=== PATIENT | female | born 1960 | race Caucasian/White ===

== ENCOUNTER → 2016-11-16 | Outpatient (CLI) | payer OTHER ==
[~2016-11-16] MED LIST: CITA40TA4 PO; [UNRECOGNIZED DRUG - CODE] PO
[2016-11-16 17:19] LABS: ALT/SGPT 32 U/L (12-78); BLOOD UREA NITROGEN 16 mg/dl (7-18); BUN/CREATININE RATIO 21.8 (10-20); CALCIUM 9.8 mg/dl (8.5-10.1); CARBON DIOXIDE 31 mmol/L (21-32); CHLORIDE 99 mmol/L (98-107); CREATININE 0.71 mg/dl (0.60-1.20); GLUCOSE 102 mg/dl (70-99); POTASSIUM 3.7 mmol/L (3.5-5.1); SODIUM 138 mmol/L (136-145)
[2016-11-16 17:29] LABS: ALB/GLOB RATIO 1.3 (0.9-2); ALKALINE PHOSPHATASE 64 U/L (45-117); AST/SGOT 24 U/L (15-37)
== END | disposition home or self-care (01) ==
LOC: C.LABBC 14:16
PROVIDERS: ATTEND Internal Medicine
DX: K21.9 Gastro-esophageal reflux disease without esophagitis (principal); S82.892A Other fracture of left lower leg, initial encounter for closed fracture; X58.XXXA Exposure to other specified factors, initial encounter

== ENCOUNTER 2016-11-17 21:24 | Emergency (ER) | payer OTHER ==
[~2016-11-17] VITALS: Ht 162.6 cm; Wt 68.6 kg
[2016-11-17 21:33] VITALS: TEMP 36.7; Ht 162.6 cm; Wt 68.6 kg
[2016-11-17] MEDS ORDERED: LIDOCAINE/EPINEPHRINE 1% 20 ML VIAL ONE (21:40)
[2016-11-17] MEDS ORDERED: SODIUM CHLORIDE 0.9% 1000ML 1,000 ML IV STA (21:55)
[2016-11-17 22:22] LABS: BASO % 0.5 %; BASO ABS # 0.04 K/uL (0-0.2); COMPLETE YES; EOS % 0.8 %; IG% 0.1 %; LYMPH % 36.9 %; LYMPH ABS # 2.84 K/uL (1.2-3.4); MEAN CELL VOLUME 97.7 fL (80-100); MEAN CORPUSCULAR HEMOGLOBIN 32.3 pg (25-34); MEAN PLATELET VOLUME 9.3 fL (7.4-10.4); NEUT % 55.7 %; PLATELET COUNT 266 K/uL (130-400); WHITE BLOOD COUNT 7.69 K/uL (4.8-10.8)
--- NOTE | 2016-11-17 22:32 | DIAGNOSTIC IMAGING REPORT ---
HEAD CT NONCONTRAST CT DOSE: HISTORY: Trauma fall, ETOH, facial injury TECHNIQUE: Multiaxial CT images of the head were performed without the use of intravenous contrast. Comparison: None. Findings: The paranasal sinuses and mastoid air cells are clear. The calvarium and skull base are intact. The ventricles and sulci are within normal limits. There is no mass, hematoma, midline shift, or acute infarct. Impression: No acute intracranial abnormality. Electronically signed by: Bassam Whaley M.D. 11/17/2016 10:30 PM Dictated Date/Time: 11/17/2016 10:30 PM
--- NOTE | 2016-11-17 22:34 | DIAGNOSTIC IMAGING REPORT ---
CERVICAL SPINE CT CT DOSE: HISTORY: Trauma fall, ETOH, facial injury TECHNIQUE: Multiaxial CT images of the cervical spine were performed and reformatted in the sagittal and coronal plane without the use of contrast. COMPARISON: None. FINDINGS: No fractures. No subluxation. Prevertebral soft tissues and the C1-C2 interval are intact. No pneumothorax. Secondary ossification center superior aspect of the odontoid considered an anatomic variation. Moderate degenerative intervertebral this change. IMPRESSION: No acute process. Degenerative change. Electronically signed by: Bassam Whaley M.D. 11/17/2016 10:32 PM Dictated Date/Time: 11/17/2016 10:30 PM
--- NOTE | 2016-11-17 22:37 | DIAGNOSTIC IMAGING REPORT ---
MAXILLOFACIAL CT CT DOSE: 1171.35 mGy.cm HISTORY: Trauma fall, ETOH, facial injury TECHNIQUE: Multiaxial CT images of the maxillofacial region were performed and reformatted in the coronal plane without the use of contrast. COMPARISON: 10/31/2009 FINDINGS: The visualized cervical spine, skull base, pterygoid plates, nasal bones, lamina papyracea, orbital floors, mandible, and zygomatic arches are intact. No fractures. The orbits are unremarkable. Slight deformity of the nasal bones unchanged in the prior study. Slight cortical depression of the zygomatic arch bilaterally considered anatomic variation and also unchanged. Orbital margins are intact. Orbital floors are intact. Globes are symmetric. IMPRESSION: No acute bony abnormality. Several minor findings consistent with old posttraumatic change Electronically signed by: Bassam Whaley M.D. 11/17/2016 10:36 PM Dictated Date/Time: 11/17/2016 10:33 PM
[2016-11-17 22:42] LABS: BUN/CREATININE RATIO 14.3 (10-20); CALCIUM 9.4 mg/dl (8.5-10.1); CREATININE 0.79 mg/dl (0.60-1.20); POTASSIUM 3.5 mmol/L (3.5-5.1)
[2016-11-18 00:20] VITALS: BP 135/89; PULSE 81; O2SAT 98
--- NOTE | 2016-11-18 04:54 | EMERGENCY ROOM VISIT NOTE ---
History First contact with patient: 21:41 Chief Complaint: FALL Stated Complaint: FALL/ HEAD LAC History of Present Illness The patient is a 56 year old female who presents to the Emergency Room with complaints of fall who sustained a head injury he was intoxicated. Patient states she tripped and fell and hit her head in the kitchen. She had brief LOC. Patient's been drinking wine today. Patient has a laceration to her right temporal region. Tetanus is current. Patient denies neck pain, chest pain, dyspnea, back pain, numbness, tingling, dental pain, eye pain, lightheadedness or dizziness. No drug use. No other complains per patient. states he heard a thump and went to go check on his . He brought her in for further evaluation and treatment. Review of Systems See HPI for pertinent positives & negatives. A total of 10 systems reviewed and were otherwise negative. Past Medical/Surgical History Medical Problems: (1) Alcohol abuse (2) Depression (3) Feeling suicidal (4) Noncompliance with medication regimen Family History Patient reports no known family medical history. Social History Smoking Status: Never Smoker Alcohol Use: heavy Drug Use: none Marital Status: Housing Status: lives with family Occupation Status: employed Current/Historical Medications Scheduled Citalopram Hydrobromide (Citalopram Hydrobromide), 40 MG PO DAILY Trazodone Hcl (Trazodone), 150 MG PO HS Allergies Coded Allergies: No Known Allergies (Unverified , 10/31/09) Physical Exam Vital Signs Date Time Temp Pulse Resp B/P Pulse Ox O2 Delivery O2 Flow Rate FiO2 11/18/16 00:20 81 16 135/89 98 11/17/16 22:39 89 16 136/94 97 Room Air 11/17/16 21:33 36.7 80 18 184/105 96 Room Air 11/17/16 21:33 77 Pain Rating (0-10): 0 Physical Exam PHYSICAL EXAM: VITALS: Vitals are noted on the nurse's note and reviewed by myself. Vital signs hypertensive. GENERAL: Pleasant female with EtOH odor with arterial bleeding from the right temporal region that is profuse, nondiaphoretic, well-developed well- nourished. SKIN: 3 cm right forehead temporal region laceration with contusion that is profusely bleeding that is bright red in color concerning for arterial bleed The rest of the skin was without obvious lacerations or abrasions. Capillary reflex less than 2 seconds. HEAD: Normocephalic EARS: External auditory canals clear, tympanic membranes pearly jain without erythema or effusion bilaterally. No hemotympanums. No hardy sign. No mastoid tenderness. EYES: Pupils equal round and reactive to light and accommodation. Conjunctivae with injection, sclerae without icterus. Extraocular movements intact. NOSE: Patent, turbinates without inflammation or discharge. No sinus tenderness. No septal hematoma or bleeding. FACE: No facial bone tenderness. Full range of motion of the jaw without tenderness. MOUTH: Mucous membranes moist. Pharynx without erythema or exudate. Uvula midline. Airway patent. Tongue does not deviate. NECK: Supple without nuchal rigidity. Cervical spine is nontender. Full range of motion of the neck without tenderness. No JVD. HEART: Regular rate and rhythm without murmurs gallops or rubs. LUNGS: Clear to auscultation bilaterally without wheezes, rales or rhonchi. No dullness to percussion. No retractions or accessory muscle use. No chest wall tenderness. ABDOMEN: Positive bowel sounds x 4. Normal tympanic percussion. Soft, nontender, without masses or organomegaly. No guarding or rebound tenderness. MUSCULOSKELETAL: No tenderness of the thoracic or lumbar spine. No tenderness with pelvic rocking. Full range of motion without tenderness to palpation in all extremities. Normal gait. Strength 5/5 throughout. Peripheral pulses 2+. NEURO: Patient was alert and oriented to person place and time. Normal Mini- Mental status exam. Normal sensation to light and sharp touch. Negative Romberg and pronator drift. Cerebellar function intact. No focal neurological deficits. Medical Decision & Procedures Laboratory Results 11/17/16 21:59 Red Blood Count 4.40, Mean Corpuscular Volume 97.7, Mean Corpuscular Hemoglobin 32.3, Mean Corpuscular Hemoglobin Concent 33.0, Mean Platelet Volume 9.3, Neutrophils (%) (Auto) 55.7, Lymphocytes (%) (Auto) 36.9, Monocytes (%) (Auto) 6.0, Eosinophils (%) (Auto) 0.8, Basophils (%) (Auto) 0.5, Neutrophils # (Auto) 4.28, Lymphocytes # (Auto) 2.84, Monocytes # (Auto) 0.46, Eosinophils # (Auto) 0.06, Basophils # (Auto) 0.04 11/17/16 21:59 Test 11/17/16 21:59 White Blood Count 7.69 K/uL (4.8-10.8) Red Blood Count 4.40 M/uL (4.2-5.4) Hemoglobin 14.2 g/dL (12.0-16.0) Hematocrit 43.0 % (37-47) Mean Corpuscular Volume 97.7 fL (80-100) Mean Corpuscular Hemoglobin 32.3 pg (25-34) Mean Corpuscular Hemoglobin Concent 33.0 g/dl (32-36) Platelet Count 266 K/uL (130-400) Mean Platelet Volume 9.3 fL (7.4-10.4) Neutrophils (%) (Auto) 55.7 % Lymphocytes (%) (Auto) 36.9 % Monocytes (%) (Auto) 6.0 % Eosinophils (%) (Auto) 0.8 % Basophils (%) (Auto) 0.5 % Neutrophils # (Auto) 4.28 K/uL (1.4-6.5) Lymphocytes # (Auto) 2.84 K/uL (1.2-3.4) Monocytes # (Auto) 0.46 K/uL (0.11-0.59) Eosinophils # (Auto) 0.06 K/uL (0-0.5) Basophils # (Auto) 0.04 K/uL (0-0.2) RDW Standard Deviation 50.6 fL (36.4-46.3) RDW Coefficient of Variation 14.1 % (11.5-14.5) Immature Granulocyte % (Auto) 0.1 % Immature Granulocyte # (Auto) 0.01 K/uL (0.00-0.02) Anion Gap 7.0 mmol/L (3-11) Est Creatinine Clear Calc Drug Dose 77.5 ml/min Estimated GFR () 98.4 Estimated GFR (Non- 84.9 BUN/Creatinine Ratio 14.3 (10-20) Calcium Level 9.4 mg/dl (8.5-10.1) Ethyl Alcohol mg/dL 294.0 mg/dl (0-3) Medications Administered Medications (Trade) Dose Ordered Sig/Carlin Route Start Time Stop Time Status Last Admin Dose Admin Sodium Chloride (Nss 1000ml) 1,000 ml @ 999 mls/hr Q1H1M STAT IV 11/17/16 21:55 11/17/16 22:55 DC 11/17/16 21:55 999 MLS/HR Procedure Location: Right forehead temporal region Total length: 3 centimeters Complexity: Complex as patient had an arterial bleed Verbal consent was obtained after the risks and benefits were explained, including but not limited to bleeding, scarring, infection, pain, and bone/joint /nerve damage. At this time, the risks of the procedure are less than the risks of NOT performing the procedure. A time out was taken and the correct patient and site identified. The skin was prepped with betadine. The target area was anesthetized with 5 ml of 1% lidocaine with epinephrine and also to achieve hemostasis. Copious irrigation was performed using normal saline . The skin was re-prepped with betadine and a sterile field set. The wound was explored for foreign bodies and none found. Examination revealed no injury to deep structures such as tendons, bone, or significant blood vessels, but there was copious amount of bright red blood concerning for arterial bleed that was sutured down and hemostasis was achieved concerning for small tributary artery. Debridement was not performed. The wound edges were approximated using 6, 4-0 simple interrupted nylon sutures. Hemostasis and excellent approximation was achieved. Antibacterial ointment and a sterile dressing applied. Detailed wound care instructions and signs and symptoms of infection reviewed with the pt. No complications and the patient tolerated the procedure well. ED Course Prior records/ancillary studies reviewed. Triage Nursing notes reviewed. Additional history obtained from family. The patient's history was concerning for traumatic head injury who is intoxicated with a scalp laceration with arterial bleed Differential diagnosis: Etiologies such as concussion, contusion, fracture, subdural hematoma, epidural hematoma, intraparenchymal hemorrhage, as well as other traumatic pathologies were entertained. Physical examination findings: As above. ER treatment provided: Laceration repaired as above On reassessment the patient felt better. Diagnostics interpreted by me: The labs revealed limited alcohol. Stable H&H Imaging studies: CERVICAL SPINE CT CT DOSE: HISTORY: Trauma fall, ETOH, facial injury TECHNIQUE: Multiaxial CT images of the cervical spine were performed and reformatted in the sagittal and coronal plane without the use of contrast. COMPARISON: None. FINDINGS: No fractures. No subluxation. Prevertebral soft tissues and the C1-C2 interval are intact. No pneumothorax. Secondary ossification center superior aspect of the odontoid considered an anatomic variation. Moderate degenerative intervertebral this change. IMPRESSION: No acute process. Degenerative change. CT DOSE: HISTORY: Trauma fall, ETOH, facial injury TECHNIQUE: Multiaxial CT images of the head were performed without the use of intravenous contrast. Comparison: None. Findings: The paranasal sinuses and mastoid air cells are clear. The calvarium and skull base are intact. The ventricles and sulci are within normal limits. There is no mass, hematoma, midline shift, or acute infarct. Impression: No acute intracranial abnormality. CT DOSE: 1171.35 mGy.cm HISTORY: Trauma fall, ETOH, facial injury TECHNIQUE: Multiaxial CT images of the maxillofacial region were performed and reformatted in the coronal plane without the use of contrast. COMPARISON: 10/31/2009 FINDINGS: The visualized cervical spine, skull base, pterygoid plates, nasal bones, lamina papyracea, orbital floors, mandible, and zygomatic arches are intact. No fractures. The orbits are unremarkable. Slight deformity of the nasal bones unchanged in the prior study. Slight cortical depression of the zygomatic arch bilaterally considered anatomic variation and also unchanged. Orbital margins are intact. Orbital floors are intact. Globes are symmetric. IMPRESSION: No acute bony abnormality. Several minor findings consistent with old posttraumatic change Electronically signed by: Bassam Whaley M.D. It appears the patient has a concussion with scalp laceration and he was intoxicated. CT imaging was ordered and was unremarkable as above. Patient is intoxicated and her is willing to care for her. The arterial bleeder was ligated and sutured as above. Tetanus is current per patient. She is strongly encouraged avoid excessive alcohol intake in the future. She is Head Injury Signs and Symptoms and Laceration Care. She Is Advised Follow-Up Family Care in A Few Days or Here in the ER Sooner for Headache, Fevers, Confusion, Worsening Signs or Symptoms or As Needed. No Other Injuries Are Noted. Patient Is Well-Appearing. By the evaluation outlined above emergent etiologies such as fracture, subdural hematoma, epidural hematoma, intraparenchymal hemorrhage, as well as others were deemed relatively unlikely. The pt informed about the findings as listed above. All questions were answered and pleased with the treatment. Return instructions were outlined and the patient was discharged in stable condition. Case reviewed with my attending Referral: The patient was referred back to their primary care physician for follow-up in 2 to 3 days for a recheck of the current condition. Medical Decision As above Impression Primary Impression: Scalp laceration Additional Impressions: Alcohol intoxication Head injury Fall Departure Information Dispostion Home / Self-Care Condition GOOD Forms HOME CARE DOCUMENTATION FORM, IMPORTANT VISIT INFORMATION Patient Instructions My [facility], ED Head Injury Closed, ED Laceration All, ED Alcohol Abuse Additional Instructions Keep wound clean and dry. Do not allow any crusting or dried blood to accumulate on sutures. If this occurs, use a 1:1 solution of hydrogen peroxide/ water on a Q-tip to clean the wound. Use an antibiotic ointment for 3-4 days, then let wound dry. Suture removal in 5-7 days. Return sooner for any signs of infection (increasing redness, swelling, drainage). Ice and elevate for swelling and pain. Keep covered when in sun until sutures removed then SPF 50 or higher for one year. Vitamin E oil if desired two weeks after suture removal for reduction of scar Read head injury handout and return for any symptoms. Tylenol 1000 mg as needed for pain (Maximum 3000 mg Tylenol in 24 hr period). Avoid alcohol and contact sports/activities for one week and follow up with family doctor prior to returning to these activities if still symptomatic. Ice and elevate head. If your symptoms persist more than a week then follow up with the concussion clinic. Call [phone]. Recommend not to drink excessive amounts of alcohol. Return to ER sooner for headache, fevers, confusion, worsening signs or symptoms or as needed. Problem Qualifiers Primary Impression: Scalp laceration Encounter type: initial encounter Qualified Codes: S01.01XA - Laceration without foreign body of scalp, initial encounter Additional Impressions: Alcohol intoxication Complication of substance-induced condition: uncomplicated Qualified Codes: F10.120 - Alcohol abuse with intoxication, uncomplicated Head injury Encounter type: initial encounter Qualified Codes: S09.90XA - Unspecified injury of head, initial encounter
== END 2016-11-18 00:24 | disposition home or self-care (01) ==
LOC: EDBD 21:24 → C.EDC 21:26
DX: S01.01XA Laceration without foreign body of scalp, initial encounter (principal); F10.120 Alcohol abuse with intoxication, uncomplicated; F32.9 Major depressive disorder, single episode, unspecified; W18.09XA Striking against other object with subsequent fall, initial encounter

== ENCOUNTER → 2016-12-25 | Outpatient (CLI) | payer OTHER | END | disposition home or self-care (01) | LOC: C.MAMM 09:26 | PROVIDERS: ATTEND Internal Medicine | DX: S82.892A Other fracture of left lower leg, initial encounter for closed fracture (principal); X58.XXXA Exposure to other specified factors, initial encounter; M85.89 Other specified disorders of bone density and structure, multiple sites ==

== ENCOUNTER → 2016-12-25 | Outpatient (CLI) | payer OTHER ==
--- NOTE | 2016-12-26 14:34 | MAMMOGRAPHY REPORT ---
BILATERAL DIGITAL SCREENING MAMMOGRAM TOMOSYNTHESIS WITH CAD: 12/25/2016 CLINICAL HISTORY: Routine screening. Patient has no complaints. TECHNIQUE: Breast tomosynthesis in addition to standard 2D mammography was performed. Current study was also evaluated with a Computer Aided Detection (CAD) system. COMPARISON: Comparison is made to exams dated: 01/18/2014 mammogram, 01/22/2013 mammogram, 01/15/2013 mammogram - [facility], 12/09/2008, 11/18/2007, and 03/27/2013 stereotactic biopsy - [facility]. BREAST COMPOSITION: The tissue of both breasts is heterogeneously dense, which may obscure small ma sses. FINDINGS: The parenchymal pattern is similar to prior mammograms. There is a stable paige-shaped met allic biopsy marker in the 12:00 left breast. No developing mass, architectural distortion or clust er of suspicious microcalcifications is seen in either breast. IMPRESSION: ACR BI-RADS CATEGORY 2: BENIGN There is no mammographic evidence of malignancy. A 1 year screening mammogram is recommended. The p atient will receive written notification of the results. Approximately 10% of breast cancers are not detected with mammography. A negative mammographic repor t should not delay biopsy if a clinically suggestive mass is present. Kristi Fernandez M.D. ay/:12/25/2016 18:09:32 Burrito Maker: Lisa Hurley RT(R)(M), [facility] letter sent: Normal 1/2 BI-RADS Code: ACR BI-RADS Category 2: Benign
== END | disposition home or self-care (01) ==
LOC: C.MAMM 09:28
PROVIDERS: ATTEND Obstetrics & Gynecology
DX: Z12.31 Encounter for screening mammogram for malignant neoplasm of breast (principal)

== ENCOUNTER → 2017-09-18 | Outpatient (CLI) | payer OTHER ==
[2017-09-18 10:20] LABS: BASO % 0.4 %; BASO ABS # 0.03 K/uL (0-0.2); EOS % 0.7 %; EOS ABS # 0.06 K/uL (0-0.5); HEMOGLOBIN 14.9 g/dL (12.0-16.0); IG# 0.01 K/uL (0.00-0.02); LYMPH % 32.9 %; LYMPH ABS # 2.81 K/uL (1.2-3.4); MEAN CORPUSCULAR HEMOGLOBIN 33.2 pg (25-34); MEAN CORPUSCULAR HGB CONC 33.9 g/dl (32-36); MEAN PLATELET VOLUME 8.8 fL (7.4-10.4); MONO % 8.8 %; MONO ABS # 0.75 K/uL (0.11-0.59); NEUT % 57.1 %; NEUT ABS # 4.88 K/uL (1.4-6.5); PLATELET COUNT 310 K/uL (130-400); RED CELL DISTRIBUTION WIDTH CV 13.5 % (11.5-14.5); RED CELL DISTRIBUTION WIDTH SD 48.2 fL (36.4-46.3); WHITE BLOOD COUNT 8.54 K/uL (4.8-10.8)
[2017-09-18 10:50] LABS: ALBUMIN 4.9 gm/dl (3.4-5.0); ALT/SGPT 27 U/L (12-78); AST/SGOT 29 U/L (15-37); BLOOD UREA NITROGEN 18 mg/dl (7-18); CALCIUM 10.5 mg/dl (8.5-10.1); CARBON DIOXIDE 29 mmol/L (21-32); CHOLESTEROL 286 mg/dl (0-200); CREATININE 0.75 mg/dl (0.60-1.20); GLUCOSE 100 mg/dl (70-99); POTASSIUM 3.8 mmol/L (3.5-5.1); SODIUM 135 mmol/L (136-145)
[2017-09-18 11:01] LABS: ALKALINE PHOSPHATASE 74 U/L (45-117); LDL CHOLESTEROL CALCULATED 139 mg/dl; TOTAL PROTEIN 8.6 gm/dl (6.4-8.2)
== END | disposition home or self-care (01) ==
LOC: C.LAB 10:01
PROVIDERS: ATTEND Internal Medicine
DX: K59.39 Other megacolon (principal); R79.9 Abnormal finding of blood chemistry, unspecified; D75.89 Other specified diseases of blood and blood-forming organs; K92.1 Melena; K22.70 Barrett's esophagus without dysplasia; E55.9 Vitamin D deficiency, unspecified

== ENCOUNTER 2024-08-20 03:06 | Inpatient (IN) ==
--- NOTE | 2024-08-20 04:14 | Emergency Department Note ---
Impression & Plan Alcohol intoxication admit to the hospitalist ED Provider Note NAME: SINDHU VILLALTA AGE: 63 SEX: Female INFORMANT: Patient ED PROVIDER(S): Josefina Peck DO CHIEF COMPLAINT: Requesting detox and rehab from alcohol PLAN: Disposition: admit to the hospitalist MEDICAL DECISION MAKING: this is a 63-year-old female patient presents to the emergency department stating that she is an alcoholic and is requesting detox and rehab from alcohol. she has a history of depression and is prescribed medication but has not been taking it. Her blood alcohol level is 350. She would like to be admitted to the hospital for detox and then be transferred directly to inpatient rehab. She met with the ED psychiatric social work case manager to confirm the process. Patient was hypertensive and tachycardic. She was treated with IV normal saline, IV thiamine, IV folate and oral multivitamin. Other laboratory studies revealed a glucose of 109. There was no leukocytosis or anemia. Coagulation studies were normal. lipase was normal. Triage Nursing notes: reviewed and agree With them. Vital Signs: reviewed and remarkable for hypertension and tachycardia Additional History obtained from: her friend and paint line production supervisor who are at the bedside Chronic Medical/Social Conditions affecting care: alcoholism and hypertension Differential Diagnosis: alcohol intoxication, alcohol withdrawal, hypoglycemia, hyperglycemia, medication noncompliance Diagnostics, independently interpreted by me: Cardiac Monitoring: sinus tachycardia at 106 HPI: 63 year old Female arrives for evaluation of alcohol intoxication. she is an alcoholic and is requesting detox and rehab from alcohol. she has a history of depression and is prescribed medication but has not been taking it. PAST MEDICAL HISTORY: See Below, PAST SURGICAL HISTORY: See Below, SOCIAL HISTORY: See Below, HOME MEDICATIONS: see list-the patient is not taking them ALLERGIES: none VITALS: See Below PHYSICAL EXAMINATION: HEENT: Head - normocephalic and atraumatic. Pupils are equal, round, and reactive to light. Extraocular eye muscles are intact, and sclera are anicteric With moderate conjunctival hemorrhage.. Nose - moist nasal mucosa without discharge. Mouth - moist buccal mucosa. Oropharynx is nonerythematous and there is no tonsillar exudate or edema noted. Neck: Supple; no JVD, nuchal rigidity, cervical lymphadenopathy Heart: Tachycardic rate and regular rhythm. There is a normal S1 and S2 with no murmurs, clicks, or gallops appreciated. Lungs: Clear to auscultation bilaterally with no wheezes, rales, or rhonchi. Abdomen: Soft, completely nontender, nondistended, with good bowel sounds. There are no palpable pulsatile masses or hepatosplenomegaly. There is no guarding, rigidity, or rebound noted. Extremities: No evidence of cyanosis, clubbing, or edema. There are easily palpable peripheral pulses. Skin: warm and dry with good turgor and no rashes. Emergency Department treatment: case monitor, IV normal saline bolus, IV thiamine, IV folate, oral multivitamin Emergency Department course: The patient was evaluated in room A-10. A complete history and physical was performed. IV lock was initiated and labs are drawn as above. Patient was bolused with a liter of normal saline solution and started on IV thiamine, IV folate and oral multivitamin. The real estate transaction manager met with patient. I discussed the case with the [facility] Hospitalist and she is willing to admit herself for inpatient medical care and then transition to outpatient rehab. Past Med/Surg History Problem List (Updated 08/21/24 @ 07:48 by Josefina Peck DO) Alcohol intoxication (Acute) Hyperlipidemia Pap smear for cervical cancer screening B12 deficiency Colon polyps Anxiety Depression Ecchymoses, spontaneous Abnormal bruising Sore throat Cough Diarrhea Nausea & vomiting SNHL (sensorineural hearing loss) Left arm pain Vitamin D deficiency (Acute) Osteopenia after menopause (Acute) Menopausal symptoms (Acute) Megacolon (Acute) Macrocytosis (Acute) Irritable bowel syndrome (Acute) Insomnia (Acute) Hyperlipidemia with target LDL less than 130 (Acute) GERD without esophagitis (Acute) Dermatochalasis (Acute) Rivas's esophagus (Acute) Noncompliance with medication regimen (Chronic 01/28/13) Medical History Alcoholism Head injury Depression with suicidal ideation Vaginal atrophy History of postmenopausal bleeding Polymenorrhea GERD (gastroesophageal reflux disease) History of IBS Hx of thyroid disease Depression Surgical History History of hysteroscopy History of dilation and curettage History of cataract surgery Hx of colonoscopy Family History Father Cardiac disorder Mother Myocardial infarction Grandmother (Paternal) Breast cancer Ovarian cancer Grandmother (Maternal) Colon cancer Denies family history of Prostate cancer Lung disease Social History Smoking Status: Never smoker Second Hand Exposure: No; Do You Dip or Chew Tobacco: No; Hx Alcohol Use: Yes Alcohol type: wine and hard liquor Hx Substance Use: No Preferred Language: Ukrainian Communication Ability: Effective Visual Impairment: No Limitations Hearing Ability: Normal Community Service Manager Required: No Beliefs That Will Affect Care: None Current Living Situation: Alone current occupational status: employed Feels Safe at Home: Yes caffeine: Yes Dental Care, Regularly: Yes Physical Activity Frequency: 3-4 Times per Week Assistive Devices: Contacts and Glasses Allergies Allergies Allergy/AdvReac Type Severity Reaction Status Date / Time alcohol Allergy Unknown Verified 08/11/24 11:03 Home Meds Home Medications Medication Instructions Recorded Confirmed calcium carbonate (Calcium 600) 600 mg PO DAILY 12/26/21 08/20/24 zinc-magnesium aspart-vit B6 [Zinc 1 tab PO DAILY 12/26/21 08/20/24 Magnesium Aspartate] citalopram 40 mg tablet 40 mg PO HS 08/20/24 08/20/24 trazodone 150 mg tablet 150 mg PO DAILY 08/20/24 08/20/24 Previous Rx's Medication Instructions Recorded disulfiram 250 mg tablet 250 mg PO DAILY #30 tabs 09/19/23 pantoprazole 40 mg tablet,delayed 40 mg PO DAILY #90 tabs 09/19/23 release buspirone 10 mg tablet 10 mg PO BID PRN anxiety 90 days 08/11/24 #180 tabs linaclotide 72 mcg capsule 72 mcg PO DAILY #90 caps 08/11/24 (Linzess) Results & Data (ED) Vital Signs Vital Signs - 24 hr 08/20/24 03:09 08/20/24 03:47 08/20/24 03:52 Temperature 37.3 C Temperature Source Oral Pulse Rate 119 H 116 H Pulse Rate [Apical] 115 H Respiratory Rate 20 Respiratory Effort / Characteristics Non-Labored Spontaneous Respiratory Depth Normal Respiratory Pattern Regular Blood Pressure 167/102 H Blood Pressure [Right Arm] 157/114 H Blood Pressure Mean 123 Blood Pressure Mean [Right Arm] 128 Pulse Oximetry 93 94 Oxygen Delivery Method Room Air Room Air Sepsis Recent Fever Within 48 Hours No Sepsis New/Unexplained Change in Mental Status No Sepsis Action Taken by Nursing No Action Required 08/20/24 03:55 Temperature Temperature Source Pulse Rate 110 H Pulse Rate [Apical] Respiratory Rate 18 Respiratory Effort / Characteristics Respiratory Depth Respiratory Pattern Blood Pressure Blood Pressure [Right Arm] Blood Pressure Mean Blood Pressure Mean [Right Arm] Pulse Oximetry 95 Oxygen Delivery Method Room Air Sepsis Recent Fever Within 48 Hours Sepsis New/Unexplained Change in Mental Status Sepsis Action Taken by Nursing Laboratory Data 08/20/24 03:58 08/21/24 05:24 Lab Results 08/20/24 Range/Units 03:58 WBC 10.71 (4.8-10.8) K/ul RBC 4.40 (4.20-5.40) M/uL Hgb 14.6 (12.0-16.0) g/dl Hct 42.5 (37.0-47.0) % MCV 96.6 (80.0-100.0) fL MCH 33.2 (25.0-34.0) pg MCHC 34.4 (32.0-36.0) g/dL RDW Std Deviation 51.4 H (36.4-46.3) fL RDW Coeff of Chayo 14.4 (11.5-14.5) % Plt Count 401 H (130-400) K/uL MPV 8.9 L (9.4-12.4) fL Immature Gran % (Auto) 0.2 % Neut % (Auto) 57.6 % Lymph % (Auto) 35.4 % [place] % (Auto) 5.4 % Eos % (Auto) 0.7 % Baso % (Auto) 0.7 % Neut # (Auto) 6.16 (1.40-6.50) K/uL Lymph # (Auto) 3.79 H (1.20-3.40) K/uL [place] # (Auto) 0.58 (0.11-0.59) K/uL Eos # (Auto) 0.08 (0.00-0.50) K/uL Baso # (Auto) 0.08 (0.00-0.20) K/uL Immature Gran # (Auto) 0.02 (0.01-0.20) K/uL PT 10.6 (9.0-12.0) Seconds INR 1.0 (0.9-1.1) Sodium 140 (136-145) mmol/L Potassium 3.9 (3.5-5.1) mmol/L Chloride 99 (98-107) mmol/L Carbon Dioxide 28 (21-32) mmol/L Anion Gap 13 H (3-11) BUN 15 (6-23) mg/dl Creatinine 0.67 (0.6-1.2) mg/dl Est Cr Clr Drug Dosing 76.1 ml/min eGFR 99.38 BUN/Creatinine Ratio 22.4 H (10-20) Glucose 109 H (70-99(Fasting)) mg/dl Calcium 9.5 (8.6-10.3) mg/dl Phosphorus 4.3 (2.5-4.9) mg/dl Magnesium 1.7 (1.7-2.4) mg/dl Total Bilirubin 0.4 (0.2-1.0) mg/dl AST 33 (13-39) U/L ALT 15 (7-52) U/L Alkaline Phosphatase 70 (34-104) U/L Total Protein 7.3 (6.0-8.3) gm/dl Albumin 4.5 (3.4-5.0) gm/dl Globulin 2.8 (2.5-4.0) gm/dl Albumin/Globulin Ratio 1.6 (0.9-2) Lipase 78 (11-82) U/L Ethyl Alcohol mg/dL 350.0 H (<10.0) mg/dl Administered Medications Chlordiazepoxide HCl (Chlordiazepoxide Hcl 25 Mg Cap) 100 mg PO BID [facility] Stop: 09/19/24 20:59 Last Admin: 08/20/24 20:53 Dose: 100 mg Documented By: JT Citalopram Hydrobromide (Citalopram 40 Mg Tab) 40 mg PO DAILY [facility] Stop: 09/19/24 09:44 Last Admin: 08/20/24 10:38 Dose: 40 mg Documented By: SRL Folic Acid (Folic Acid 1 Mg Tab) 1 mg PO QAM [facility] Stop: 09/19/24 09:59 Last Admin: 08/20/24 09:48 Dose: Not Given Documented By: SRL Lorazepam (Lorazepam 2 Mg/1 Ml Vial) 1 mg IV UD PRN; Protocol PRN Reason: EtOH Withdrawal AWSS Score 6,7 Stop: 09/19/24 09:29 Last Admin: 08/21/24 06:10 Dose: 1 mg Documented By: Admin: 08/21/24 02:33 Dose: 1 mg Documented By: Admin: 08/20/24 23:37 Dose: 1 mg Documented By: Admin: 08/20/24 17:24 Dose: 1 mg Documented By: NARESH Lorazepam (Lorazepam 2 Mg/1 Ml Vial) 2 mg IV UD PRN; Protocol PRN Reason: EtOH Withdrawal AWSS Score 8,9 Stop: 09/19/24 09:29 Last Admin: 08/21/24 01:32 Dose: 2 mg Documented By: KATE Pantoprazole Sodium (Pantoprazole 40 Mg Tab) 40 mg PO DAILY [facility] Stop: 09/19/24 09:44 Last Admin: 08/20/24 09:57 Dose: 40 mg Documented By: CHASE Thiamine HCl (Thiamine Hcl 100 Mg Tab) 100 mg PO QAM [facility] Stop: 09/19/24 09:59 Last Admin: 08/20/24 09:48 Dose: Not Given Documented By: CHSAE Discontinued Medications Chlordiazepoxide HCl (Chlordiazepoxide Hcl 25 Mg Cap) 50 mg PO Q6H [facility] Stop: 08/21/24 04:01 Last Admin: 08/20/24 17:00 Dose: 50 mg Documented By: Admin: 08/20/24 09:57 Dose: 50 mg Documented By: CHASE Folic Acid (Folic Acid 1 Mg Tab) 1 mg PO NOW ONE Stop: 08/20/24 03:56 Last Admin: 08/20/24 05:13 Dose: Not Given Documented By: MERCED Thiamine HCl 100 mg/ Syringe 10 mls @ 2 mls/min IV NOW ONE Stop: 08/20/24 03:59 Last Admin: 08/20/24 05:37 Dose: 2 mls/min Documented By: MERCED Folic Acid 1 mg/ Syringe 10 mls @ 5 mls/min IV NOW ONE Stop: 08/20/24 03:56 Last Admin: 08/20/24 05:37 Dose: 5 mls/min Documented By: MERCED Sodium Chloride (Nss) 1,000 mls @ 999 mls/hr IV .Q1H1M ONE Stop: 08/20/24 06:38 Last Infusion: 08/20/24 06:47 Dose: Infused Documented By: Admin: 08/20/24 05:39 Dose: 999 mls/hr Documented By: MERCED Famotidine (Pepcid 20mg Iv Push) 20 mg in 5 mls @ 2.5 mls/min IV NOW STA Stop: 08/20/24 05:39 Last Admin: 08/20/24 05:57 Dose: 2.5 mls/min Documented By: MERCED Multivitamins (Multivitamin Tab) 1 tab PO NOW ONE Stop: 08/20/24 03:56 Last Admin: 08/20/24 05:13 Dose: Not Given Documented By: MERCED Multivitamins (Multivitamin Tab) 1 tab PO NOW STA Stop: 08/20/24 05:02 Last Admin: 08/20/24 05:14 Dose: 1 tab Documented By: MERCED Thiamine HCl (Thiamine Hcl 100 Mg Tab) 100 mg PO NOW ONE Stop: 08/20/24 03:56 Last Admin: 08/20/24 05:14 Dose: Not Given Documented By: MERCED Discharge Plan Visit Data Chief Complaint: Alcohol Withdrawal Stated Complaint: ALCOHOL WITHDRAWAL ED Provider: Josefina Peck Discharge Problem: Alcohol intoxication Patient Disposition: Admitted As Inpatient Discharge Instructions Interventions: ED Discharge Assessment Last Done: 08/20/24 15:46
[2024-08-20 04:39] LABS: Albumin Globulin Ratio 1.6 (0.9-2); Albumin Level 4.5 gm/dl (3.4-5.0); BUN Creatinine Ratio 22.4 (10-20); Bilirubin,Total 0.4 mg/dl (0.2-1.0); Calcium 9.5 mg/dl (8.6-10.3); Creatinine Clr Calc Pharmacy 76.1 ml/min; Globulin 2.8 gm/dl (2.5-4.0); Potassium 3.9 mmol/L (3.5-5.1); Total Protein 7.3 gm/dl (6.0-8.3)
[2024-08-20 04:55] LABS: Basophils # (auto) 0.08 K/uL (0.00-0.20); Basophils % (auto) 0.7 %; Eosinophils # (auto) 0.08 K/uL (0.00-0.50); Eosinophils % (auto) 0.7 %; Hematocrit (blood only) 42.5 % (37.0-47.0); Hemoglobin 14.6 g/dl (12.0-16.0); Immature Granulocytes # (auto) 0.02 K/uL (0.01-0.20); Immature Granulocytes % (auto) 0.2 %; Lymphocytes # (auto) 3.79 K/uL (1.20-3.40); Lymphocytes % (auto) 35.4 %; Mean Corpuscular Hemoglobin 33.2 pg (25.0-34.0); Mean Corpuscular Hgb Conc 34.4 g/dL (32.0-36.0); Mean Corpuscular Volume 96.6 fL (80.0-100.0); Mean Platelet Volume 8.9 fL (9.4-12.4); Monocytes # (auto) 0.58 K/uL (0.11-0.59); Monocytes % (auto) 5.4 %; Neutrophils # (auto) 6.16 K/uL (1.40-6.50); Neutrophils % (auto) 57.6 %; Platelet Count 401 K/uL (130-400); RDW Coefficient of Variation 14.4 % (11.5-14.5); RDW Standard Deviation 51.4 fL (36.4-46.3); White Blood Count 10.71 K/ul (4.8-10.8)
[2024-08-20 05:01] LABS: Prothrombin Time 10.6 Seconds (9.0-12.0)
[2024-08-20] MEDS: FOLIC ACID 1 MG TAB PO ONE (05:13)
[2024-08-20] MEDS: MULTIVITAMIN TAB PO ONE (05:13)
[2024-08-20] MEDS: MULTIVITAMIN TAB PO STA (05:14)
[2024-08-20] MEDS: THIAMINE HCL 100 MG TAB PO ONE (05:14)
[2024-08-20] MEDS: THIAMINE HCL 100 MG in SYRINGE 9 ML IV ONE (05:37)
[2024-08-20] MEDS: FOLIC ACID 1 MG in SYRINGE 9.8 ML IV ONE (05:37)
[2024-08-20] MEDS: SODIUM CHLORIDE 0.9% 1,000 ML IV ONE (05:39)
[2024-08-20] MEDS: FAMOTIDINE 20MG IV PUSH 20 MG/5 ML SYR IV STA (05:57)
--- NOTE | 2024-08-20 06:14 | History & Physical Report ---
Date of Service August 20, 2024 Assessment & Plan (1) Alcoholism: Plan: 63yo female with history of alcoholism presents requesting detox and rehab placement. Patient drinks daily, difficult to quantify amount. Last drink was 08/19/24 around 23:00. She is tachycardic at present, no tremors. Her EtOH level is elevated at 350. Liver studies are intact. No clinical evidence of cirrhosis. -Admit to PCU -Librium taper -Ativan PRN per AWSS -Continue daily thiamine, folic acid and MVI -Psychiatry consultation appreciated -Case Management consultation appreciated (2) Depression: Plan: Patient with history of depression and anxiety for which she is taking Sertraline and Buspirone. She reports she hasn't been taking her medications as prescribed -Continue Sertraline -Continue Buspirone PRN -Will hold Trazodone for now (3) GERD without esophagitis: Plan: Chronic. Patient endorses some GERD symptoms as well as nausea and non-bloody emesis -Protonix 40mg po daily Plan F/E/N - saline lock. Electrolytes WNL. Regular diet as tolerated Ppx - low risk for DVT, encourage ambulation. If prolonged hospitalization would add chemo-ppx for DVT Code - Full Dispo -Admit to PCU History of Present Illness Chief Complaint: EtOH detox request Primary Care Provider: NO PCP Olivia Kay is a 63yo female with history of Depression/Anxiety, EtOH use and GERD presenting for EtOH detox and rehab placement. Patient reports heavy EtOH use for the lat 40 years at least. She drinks wine and rum. Difficult to quantify amount - reports she will drink a bottle of wine every day then rum if there is any in the house. Her last drink was 08/29/24 around 23:00. She reports she has gone several days without drinking in the past with only mild withdrawal symptoms. No history of DTs or seizures. Tonight she was brought in by friends because she is "tired of her life" and the way things are and would like to get help. She denies SI/HI. In the ER she is afebrile, mild tachycardia ER Course: Pepcid 20mg IV NSS 1L Folic Acid 1mg IV Thiamine 100mg IV MVI Allergies Allergy/AdvReac Type Severity Reaction Status Date / Time alcohol Allergy Unknown Verified 08/11/24 11:03 Home Medications Medication Instructions Recorded Confirmed Type calcium carbonate (Calcium 600) 600 mg PO DAILY 12/26/21 08/11/24 History zinc-magnesium aspart-vit B6 [Zinc PO DAILY 12/26/21 08/11/24 History Magnesium Aspartate] disulfiram 250 mg tablet 250 mg PO DAILY #30 tabs 09/19/23 08/11/24 Rx pantoprazole 40 mg tablet,delayed 40 mg PO DAILY #90 tabs 09/19/23 08/11/24 Rx release trazodone 150 mg tablet See Rx Instructions .Route 09/19/23 08/11/24 Rx .COMPLEX #90 tabs buspirone 10 mg tablet 10 mg PO BID PRN anxiety 90 days 08/11/24 08/11/24 Rx #180 tabs linaclotide 72 mcg capsule 72 mcg PO DAILY #90 caps 08/11/24 08/11/24 Rx (Linzess) citalopram 40 mg tablet See Rx Instructions .Route 08/17/24 Rx .COMPLEX #30 tabs Past Med/Surg History Problem List Hyperlipidemia Pap smear for cervical cancer screening B12 deficiency Colon polyps Anxiety Depression Ecchymoses, spontaneous Abnormal bruising Sore throat Cough Diarrhea Nausea & vomiting SNHL (sensorineural hearing loss) Left arm pain Vitamin D deficiency (Acute) Osteopenia after menopause (Acute) Menopausal symptoms (Acute) Megacolon (Acute) Macrocytosis (Acute) Irritable bowel syndrome (Acute) Insomnia (Acute) Hyperlipidemia with target LDL less than 130 (Acute) GERD without esophagitis (Acute) Dermatochalasis (Acute) Rivas's esophagus (Acute) Noncompliance with medication regimen (Chronic 01/28/13) Medical History Alcoholism Head injury Depression with suicidal ideation Vaginal atrophy History of postmenopausal bleeding Polymenorrhea GERD (gastroesophageal reflux disease) History of IBS Hx of thyroid disease Depression Surgical History History of hysteroscopy History of dilation and curettage History of cataract surgery Hx of colonoscopy Family History Father Cardiac disorder Mother Myocardial infarction Grandmother (Paternal) Breast cancer Ovarian cancer Grandmother (Maternal) Colon cancer Denies family history of Prostate cancer Lung disease Social History Smoking Status: Never smoker Second Hand Exposure: No; Do You Dip or Chew Tobacco: No; Hx Alcohol Use: Yes Alcohol type: wine Hx Substance Use: No Preferred Language: Yoruba Communication Ability: Effective Visual Impairment: No Limitations Hearing Ability: Normal Batch Unloader Required: No Beliefs That Will Affect Care: None Current Living Situation: Significant Other current occupational status: employed Feels Safe at Home: Yes caffeine: Yes Dental Care, Regularly: Yes Physical Activity Frequency: 3-4 Times per Week Assistive Devices: Contacts and Glasses Review of Systems Review of Systems: All systems reviewed & are unremarkable except as noted in HPI & below Physical Exam Physical Exam: General: patient resting comfortably, NAD, non-toxic in appearance, AA&O x 4, patient is tearful during encounter, states she is embarrassed about her drinking Skin: warm, dry, intact, no rashes or lesions HEENT: NC/AT, PERRL, EOMI, anicteric sclera, conjunctiva without injection, external ear normal to inspection and nontender, nares patent, moist mucus membranes, dentition intact, no oropharyngeal lesions, neck supple, trachea midline, no LAD, no thyromegaly, no JVD Heart: +S1/S2, regular, tachycardia, no m/r/g Lungs: equal air entry bilaterally, no rales/rhonchi/wheezes Abd: +BS, soft, NT/ND, no masses/organomegaly/ascites Ext: warm, 2+ pulses in UE/LE bilaterally, no clubbing/cyanosis or edema Neuro: nonfocal, patient AA&O x 4, speech intact, no facial droop, moving all extremities on command with equal strength 5/5 Results & Data Results & Data Vital Signs (Past 12 Hours) Vital Signs Temp Pulse Pulse Resp BP BP Pulse Ox 08/20/24 05:09 108 H 20 127/97 94 08/20/24 05:00 115 H 18 127/97 93 08/20/24 04:26 102 H 15 94 08/20/24 04:00 116 H 18 148/101 H 92 08/20/24 03:56 109 H 22 95 08/20/24 03:55 110 H 18 95 08/20/24 03:53 108 H 21 94 08/20/24 03:52 116 H 08/20/24 03:47 115 H 20 157/114 H 94 08/20/24 03:09 37.3 C 119 H 167/102 H 93 O2 Del Method 08/20/24 05:09 Room Air 08/20/24 05:00 Room Air 08/20/24 04:26 Room Air 08/20/24 04:00 Room Air 08/20/24 03:56 Room Air 08/20/24 03:55 Room Air 08/20/24 03:53 Room Air 08/20/24 03:52 08/20/24 03:47 Room Air 08/20/24 03:09 Room Air Laboratory Results Laboratory Results WBC 10.71 K/ul (4.8-10.8) 08/20/24 03:58 RBC 4.40 M/uL (4.20-5.40) 08/20/24 03:58 Hgb 14.6 g/dl (12.0-16.0) 08/20/24 03:58 Hct 42.5 % (37.0-47.0) 08/20/24 03:58 MCV 96.6 fL (80.0-100.0) 08/20/24 03:58 MCH 33.2 pg (25.0-34.0) 08/20/24 03:58 MCHC 34.4 g/dL (32.0-36.0) 08/20/24 03:58 RDW Std Deviation 51.4 fL (36.4-46.3) H 08/20/24 03:58 RDW Coeff of Chayo 14.4 % (11.5-14.5) 08/20/24 03:58 Plt Count 401 K/uL (130-400) H 08/20/24 03:58 MPV 8.9 fL (9.4-12.4) L 08/20/24 03:58 Immature Gran % (Auto) 0.2 % 08/20/24 03:58 Neut % (Auto) 57.6 % 08/20/24 03:58 Lymph % (Auto) 35.4 % 08/20/24 03:58 [place] % (Auto) 5.4 % 08/20/24 03:58 Eos % (Auto) 0.7 % 08/20/24 03:58 Baso % (Auto) 0.7 % 08/20/24 03:58 Neut # (Auto) 6.16 K/uL (1.40-6.50) 08/20/24 03:58 Lymph # (Auto) 3.79 K/uL (1.20-3.40) H 08/20/24 03:58 [place] # (Auto) 0.58 K/uL (0.11-0.59) 08/20/24 03:58 Eos # (Auto) 0.08 K/uL (0.00-0.50) 08/20/24 03:58 Baso # (Auto) 0.08 K/uL (0.00-0.20) 08/20/24 03:58 Immature Gran # (Auto) 0.02 K/uL (0.01-0.20) 08/20/24 03:58 PT 10.6 Seconds (9.0-12.0) 08/20/24 03:58 INR 1.0 (0.9-1.1) 08/20/24 03:58 Sodium 140 mmol/L (136-145) 08/20/24 03:58 Potassium 3.9 mmol/L (3.5-5.1) 08/20/24 03:58 Chloride 99 mmol/L (98-107) 08/20/24 03:58 Carbon Dioxide 28 mmol/L (21-32) 08/20/24 03:58 Anion Gap 13 (3-11) H 08/20/24 03:58 BUN 15 mg/dl (6-23) 08/20/24 03:58 Creatinine 0.67 mg/dl (0.6-1.2) 08/20/24 03:58 Est Cr Clr Drug Dosing 76.1 ml/min 08/20/24 03:58 eGFR 99.38 08/20/24 03:58 BUN/Creatinine Ratio 22.4 (10-20) H 08/20/24 03:58 Glucose 109 mg/dl (70-99(Fasting)) H 08/20/24 03:58 Calcium 9.5 mg/dl (8.6-10.3) 08/20/24 03:58 Total Bilirubin 0.4 mg/dl (0.2-1.0) 08/20/24 03:58 AST 33 U/L (13-39) 08/20/24 03:58 ALT 15 U/L (7-52) 08/20/24 03:58 Alkaline Phosphatase 70 U/L (34-104) 08/20/24 03:58 Total Protein 7.3 gm/dl (6.0-8.3) 08/20/24 03:58 Albumin 4.5 gm/dl (3.4-5.0) 08/20/24 03:58 Globulin 2.8 gm/dl (2.5-4.0) 08/20/24 03:58 Albumin/Globulin Ratio 1.6 (0.9-2) 08/20/24 03:58 Lipase 78 U/L (11-82) 08/20/24 03:58 Ethyl Alcohol mg/dL 350.0 mg/dl (<10.0) H 08/20/24 03:58 PG Care Time/CCT Total # of Minutes Spent Total Time Spent with Patient: Total time spent is greater than 50% in coordination of care (as documented) at patient's floor/unit and/or counseling patient: Coding Level of Care Code 24647 INT INP/OBS CARE 2/55MIN Diagnoses Alcoholism F10.20 Depression F32.9 GERD without esophagitis K21.9
--- NOTE | 2024-08-20 06:59 | Communication Note ---
Date of Service: August 20, 2024 Olivia is a 63F w/ PMH of HLD, anxiety, depression, SNHL,osteopenia, IBS, GERD w/ Rivas's esophagus, and insomnia who presented with the assistance of friends after stating she was 'tired of her life'. Patient requested assistance with alcohol detoxification and rehab placement upon presentation. Patient noted that she was feeling better than presentation upon examination this morning, thoug hshe remains anxious about next steps. Exam: Gen: NAD, alert, interactive, emotional HEENT: Supple, no LAD, no thyromegaly, no JVD Resp:Non-labored, no wheezing/rhonchi/rales, CTAB CV:RRR, normal S1/S2, no M/R/G Abd: Soft, non-distended, no TTP, normoactive bowels, no masses Extr: 2+ dp bilaterally, no edema, tremulous upper extremities, no clonus Skin: No rashes lesions or erythema Plan: - Patient remains hemodynamically stable on room air - Continue AWSS w/ Librium taper and Ativan PRN - Continue to monitor for signs of acute withdrawal as patient was tremulous on examination - Psychiatry and CM consulted, appreciate recommendations I personally examined the patient and verified all reed points of history and exam, discussed case, and agree with decision making with Dr Misael vallejo more shaky than before. still oriented withdrawal showing some worsening - increase benzos for now/load. follow. continue symptom triggered as well. otehrwise as above
[2024-08-20] MEDS ORDERED: LORazepam 2 MG/1 ML VIAL IV PRN (09:30)
[2024-08-20] MEDS ORDERED: ACETAMINOPHEN 325 MG TAB PO PRN (09:30)
[2024-08-20] MEDS ORDERED: Ativan IV Alcohol Withdrawal--Active Protocol IV PRN (09:30)
[2024-08-20] MEDS ORDERED: ONDANSETRON INJ 2 MG/ML 2 ML VIAL IV PRN (09:30)
[2024-08-20] MEDS ORDERED: chlordiazePOXIDE ALCOHOL WITHDRAWL 50MG PO STA (09:30)
[2024-08-20] MEDS: FOLIC ACID 1 MG TAB PO SCH (09:48)
[2024-08-20] MEDS: THIAMINE HCL 100 MG TAB PO SCH (09:48)
[2024-08-20] MEDS: PANTOprazole 40 MG TAB PO SCH (09:57)
[2024-08-20] MEDS: chlordiazePOXIDE HCl 25 MG CAP PO SCH ×3 (09:57→20:53)
[2024-08-20 10:09] LABS: Magnesium 1.7 mg/dl (1.7-2.4); Phosphorus 4.3 mg/dl (2.5-4.9)
[2024-08-20] MEDS: CITALOPRAM 40 MG TAB PO SCH (10:38)
[2024-08-20] MEDS: LORazepam 2 MG/1 ML VIAL IV PRN (17:24)
[2024-08-21] MEDS: LORazepam 2 MG/1 ML VIAL IV PRN (01:32)
[2024-08-21 06:45] LABS: Albumin Globulin Ratio 1.4 (0.9-2); Albumin Level 3.5 gm/dl (3.4-5.0); BUN Creatinine Ratio 27.8 (10-20); Bilirubin,Total 1.4 mg/dl (0.2-1.0); Calcium 8.8 mg/dl (8.6-10.3); Creatinine Clr Calc Pharmacy 94.5 ml/min; Globulin 2.5 gm/dl (2.5-4.0); Potassium 3.7 mmol/L (3.5-5.1)
[2024-08-21] MEDS: MULTIVITAMIN TAB PO SCH (08:08)
--- NOTE | 2024-08-21 08:08 | Medical Student Progress Note ---
Date of Service August 21, 2024 Assessment & Plan (1) Alcohol withdrawal: Plan: Tolerating well, but symptoms are increasing -Increased anxiety, tinnitus, b/l UE tremors -Increase librium 100 mg to TID (2) Depression: Plan: Anxiety increasing, depressed speech and affect -Continue sertraline -Continue buspirone prn (3) Dry eye: Plan: L conjunctival injection, manages w/OTC artificial tears at home -Artificial tears prn (4) GERD without esophagitis: Plan: Stable, denies nausea/vomiting, abdominal pain -Continue protonix Admission and Anticipated Discharge Date Admission Date: August 20, 2024 Supervising Attestation I personally examined the patient and verified all reed points of history and exam, discussed case, and agree with decision making with Dr Fernandez and Alvarez Mckeon MS2 still somewhat shaky. But feeling reasonable. Thinks she would want to do outpatient alcohol counseling. Discussed possibly living with a friend or family for the short-term so that she is not home alone once she goes home. Vitals noted, in general she is awake and alert pleasant But shaky and a little bit slow moving. Breathing unlabored no accessory muscle use good effort. Skin without rashes pallor or icterus. Alcohol abuse/withdrawaldoing reasonably well. About the same as yesterdaynot worsening. Discussed discharge planning and sobriety/anxiety/depression management as well as support. Continue current care for now. Thiamine/folate. ambulation for DVT proph. Subjective No acute overnight events. Olivia is feeling ok, would appreciate more medications for the withdrawal. Feeling more anxious. Experiencing dry itchy eyes, normally manages w/OTC artificial tears. Has mild ringing in hear ears, no auditory hallucinations. Denies visual changes/hallucinations, nausea/vomiting, headaches. Review of Systems Review of Systems: See HPI Physical Exam Constitutional: Drowsy and uncomfortable Eyes: L lateral conjunctival injection Respiratory: Non-labored respiratory efforts. LCTAB, no wheezing, rales, rhonchi. Cardiovascular: RRR, no murmurs, rubs gallops Gastrointestinal (Abdomen): Normoactive bowel sounds. RUQ tenderness to palpation, no hepatomegaly Neurologic: A+O x3. + Serial additions. Bilateral arm tremors w/o extension Psychiatric: Depressed speech and affect Results & Data Vital Signs (Past 12 Hours) Vital Signs Temp Pulse Pulse Resp BP Pulse Ox O2 Del Method 08/21/24 07:57 37.0 C 89 16 137/80 96 Room Air 08/21/24 06:04 36.6 C 99 H 18 169/93 H 94 Room Air 08/21/24 04:37 36.4 C 75 15 137/86 95 Room Air 08/21/24 02:27 36.9 C 99 H 17 132/83 95 Room Air 08/21/24 01:27 36.5 C 101 H 18 155/96 H 94 Room Air 08/20/24 23:04 36.9 C 94 H 18 133/79 96 Room Air 08/20/24 23:01 77 Resident Activity Tracking Resident Involvement: Resident Care Provided Care Provided: Adult Hospital Medicine Resident Supervision Co-Signing Physician Notes I also examined the patient and agree with above findings documented by Dr. Mckeon . She was fully awake, more anxious, shaky and restless. However no saira lucination, seizure and severe tachycardia. Librium has been increased to 100 mg TID.Ativan PRN. Trazodone on hold. Will monitor for withdrawal symptoms today. And hopefully she can be discharged to rehabilitation centre tomorrow given her symptoms are stable.
[2024-08-21] MEDS: busPIRone 5 MG TAB PO PRN (08:09)
--- NOTE | 2024-08-21 19:04 | Billing Data ---
Date of Service August 21, 2024 Coding Level of Care Code 49246 SUB INP/OBS CARE MIN
--- NOTE | 2024-08-22 07:42 | Hospitalist Progress Note ---
Date of Service August 22, 2024 Assessment & Plan (1) Alcohol withdrawal: Plan: Tolerating well. AWSS at highest was 7 yesterday evening, over night and this morning ranging from 3-5. Last dose of Ativan was 08/21 at 0610. Librium is schedule BID. Pt's primary symptoms are anxiety, mild tremors and possible situation confusion, although she is orientated x 4. - Continue Librium 100 mg to BID - Monitor via AWSS and Ativan given PRN for symptoms - Encouraged nutrition and for pt to eat at least small potion of each meal. - Case mgt consulted for placement or outpatient services following hospital DC (2) Depression: Plan: Anxiety increasing, depressed speech and affect -Continue sertraline -Continue buspirone prn (3) Dry eye: Plan: L conjunctival injection, manages w/OTC artificial tears at home -Artificial tears prn (4) GERD without esophagitis: Plan: Stable, denies nausea/vomiting, abdominal pain. -Continue protonix Admission and Anticipated Discharge Date Admission Date: August 20, 2024 Supervising Physician Co-Signing Physician Notes I personally examined the patient and verified all reed points of history and exam, discussed case, and agree with decision making with Dr Burton pt sleeping when i see her. given that she's still deciding dispo, but also still tremulous//too soon for discharge, and plan medically would be to continue current plan - allowed pt to sleep. vitals noted nad breathing unlabored no accessory muscles anxiety/depression/EtOH abuse/withdrawal - continue current care. working on dispo planning largely based on what she decides will be best fit for her as far as inpt rehab, outpt services. will need ongoing PCP f/u re anxiety/depression as well Subjective Pt is a 63 yo female wit PMH of HLD, anxiety/depression, GERD, deras's esophagus, and long standing alcohol use disorder who presented for alcohol withdrawal on 08/21/24. This morning, pt is reporting increase anxiety and feeling of rapid heart rate. Pt also c/o decreased appetite and mild nausea. Pt's nurse is concerned for situational confusion due to pt asking questions that are not always appropriate to the situation. Pt denies, CP, SOB, abdominal pain, vomiting, diarrhea, dysuria, changes in vision, hallucinations, extremity numbness/tingling, or confusion. Pt endorses nausea, anxiety, and tremors. Review of Systems Review of Systems: See HPI Physical Exam Physical Exam: General: patient resting comfortably, NAD, non-toxic in appearance, AA&O x 4. Appears anxiety and speech is very low in volume. Skin: warm, dry, intact, no rashes or lesions HEENT: NC/AT, PERRL, EOMI, anicteric sclera, conjunctiva without injection, ne ck supple, trachea midline, no LAD, no thyromegaly, no JVD Heart: +S1/S2, regular, tachycardia, no m/r/g Lungs: equal air entry bilaterally, no rales/rhonchi/wheezes Abd: +BS, soft, NT/ND, no masses/organomegaly/ascites Ext: warm, 2+ pulses in UE/LE bilaterally, no clubbing/cyanosis or edema Neuro: nonfocal, patient AA&O x 4, speech intact, no facial droop, moving all extremities on command with equal strength 5/5 Results & Data Results & Data Vital Signs (Past 12 Hours) Vital Signs Temp Pulse Pulse Resp BP Pulse Ox O2 Del Method 08/22/24 07:28 36.5 C 85 18 143/88 H 96 Room Air 08/22/24 03:08 36.8 C 99 H 21 149/91 H 95 Room Air 08/21/24 23:33 78 08/21/24 23:00 36.7 C 97 H 17 123/75 95 Room Air Laboratory Results Abnormal lab results 08/22/24 Range/Units 07:46 Total Bilirubin 1.4 H (0.2-1.0) mg/dl Resident Activity Tracking Resident Involvement: Resident Care Provided Care Provided: Adult Hospital Medicine
[2024-08-22 08:37] LABS: Albumin Level 3.8 gm/dl (3.4-5.0); Bilirubin Direct 0.2 mg/dl (0-0.2); Bilirubin,Total 1.4 mg/dl (0.2-1.0); Total Protein 6.6 gm/dl (6.0-8.3)
[2024-08-22] MEDS ORDERED: chlordiazePOXIDE HCl 25 MG CAP PO SCH (12:00)
--- NOTE | 2024-08-22 15:47 | Billing Data ---
Date of Service August 22, 2024 Coding Level of Care Code 22470 SUB INP/OBS CARE
[2024-08-22] MEDS: LORazepam 0.5 MG TAB PO STA (21:15)
[2024-08-23] MEDS: LORazepam 2 MG/1 ML VIAL IV STA (01:58)
--- NOTE | 2024-08-23 05:12 | Communication Note ---
Date of Service: August 23, 2024 Was notified by nursing staff at approximately 19:30 that patient was adamant that she wanted to leave, was requested to speak with patient. I went to bedside and had extended conversation with patient and nursing staff- discussed with patient the importance of staying in the hospital and ensuring she has a safe plan for discharge. Patient visibly anxious and tremulous, ordered a one time dose of 0.5mg PO ativan. Patient was able to rest and slept until closer to 01:00. Was notified by nursing that patient had gotten dressed in her clothes from home and was waiting at the elevator to leave, staff was able to bring patient back to her room at this time. I went to bedside and spoke with patient again, she was very tearful and continued to express how she "wants to go home". Patient expresses frustration that she was allowed to sleep "all day" and states she is upset "the doctor didn't talk to her" during the day. I spoke with the patient's nurse separately, we both expressed concerns and do not feel she is alert/oriented enough to be able to decide to leave AMA at this time- patient confused about time of day after waking up, is unsure of length of time she has been admitted, etc. Patient is again very anxious and tremulous, I again spoke with the patient and encouraged her to stay for the night and continue her conversation with the hospitalist during the day. I offered the patient a medication to help her calm down, she accepted (ordered 0.5mg IV ativan). At approximately 04:00, AWSS was completed and patient scored a 8 and was given the protocol Ativan dosage (2mg) as previously ordered. Resident Activity Tracking Resident Involvement: Resident Care Provided Care Provided: Adult Hospital Medicine
--- NOTE | 2024-08-23 06:56 | Hospitalist Progress Note ---
Date of Service August 23, 2024 Assessment & Plan (1) Alcohol withdrawal: Plan: Tolerating well. AWSS at highest early this morning was 8 . Most scores are ranging from 2-4. Last dose of Ativan was 08/23 at 0410. Librium is schedule BID. Pt's primary symptoms are anxiety and situation confusion, although she is orientated x 4. - Continue Librium 100 mg to BID - Monitor via AWSS and Ativan given PRN for symptoms - Encouraged nutrition and for pt to eat at least small potion of each meal. - Consider Scheduled Buspar 10 mg BID for elevated anxiety - Case mgt consulted for placement or outpatient services following hospital DC (2) Depression: Plan: Anxiety increasing, depressed speech and affect -Continue sertraline (3) Dry eye: Plan: L conjunctival injection, manages w/OTC artificial tears at home -Artificial tears prn (4) GERD without esophagitis: Plan: Stable, denies nausea/vomiting, abdominal pain. -Continue protonix Admission and Anticipated Discharge Date Admission Date: August 20, 2024 Subjective Pt is a 63 yo female wit PMH of HLD, anxiety/depression, GERD, deras's esophagus, and long standing alcohol use disorder who presented for alcohol withdrawal on 08/21/24. Overnight and adrian this morning, pt was found trying to leave the hospital AMA. A tan Blankenship was called for her this morning as she was u pset and standing at the elevator wanting to leave the hospital. She has calmed by security and behavior health specialist. This morning, pt s very anxious about leaving hospital and wants to go today. Pt agreed to stay until early afternoon. Pt denies, CP, SOB, abdominal pain, vomiting, diarrhea, dysuria, changes in vision, hallucinations, extremity numbness/tingling, or confusion. AWSS score bloom ve ranged from 8 to 3 overnight and this morning. Pt endorses only anxiety this morning. Review of Systems Review of Systems: See HPI Physical Exam Physical Exam: General: patient resting comfortably, NAD, non-toxic in appearance, AA&O x 4. Appears anxious. Skin: warm, dry, intact, no rashes or lesions HEENT: NC/AT, PERRL, EOMI, anicteric sclera, conjunctiva without injection, neck supple, trachea midline, no LAD, no thyromegaly, no JVD Heart: +S1/S2, regular, no m/r/g Lungs: equal air entry bilaterally, no rales/rhonchi/wheezes Abd: +BS, soft, NT/ND, no masses/organomegaly/ascites Ext: warm, 2+ pulses in UE/LE bilaterally, no clubbing/cyanosis or edema Neuro: nonfocal, patient AA&O x 4, speech intact, no facial droop, moving all extremities on command with equal strength 5/5 Results & Data Results & Data Vital Signs (Past 12 Hours) Vital Signs Temp Pulse Pulse Resp BP Pulse Ox O2 Del Method 08/23/24 05:15 36.8 C 81 15 115/69 96 Room Air 08/23/24 04:00 37.1 C 95 H 21 135/96 96 Room Air 08/23/24 00:00 70 08/22/24 22:39 36.5 C 97 H 16 127/87 95 Room Air 08/22/24 19:00 36.5 C 100 H 21 129/84 95 Room Air
[2024-08-23 07:22] VITALS: RESP 18
[2024-08-23] MEDS: CYANOCOBALAMIN (B-12) 500 MCG TABLET PO SCH (09:07)
[2024-08-23 09:49] LABS: Albumin Level 4.1 gm/dl (3.4-5.0); Bilirubin Direct 0.2 mg/dl (0-0.2)
[2024-08-23 09:54] LABS: Total Protein 6.6 gm/dl (6.0-8.3)
[2024-08-23 11:38] VITALS: BP 121/80; TEMP 98.1; O2SAT 96
--- NOTE | 2024-08-23 12:02 | Discharge Summary ---
Date of Service August 23, 2024 Admission HPI Per Admitting Provider Olivia Kay is a 63yo female with history of Depression/Anxiety, EtOH use and GERD presenting for EtOH detox and rehab placement. Patient reports heavy EtOH use for the lat 40 years at least. She drinks wine and rum. Difficult to quantify amount - reports she will drink a bottle of wine every day then rum if there is any in the house. Her last drink was 08/29/24 around 23:00. She reports she has gone several days without drinking in the past with only mild withdrawal symptoms. No history of DTs or seizures. Tonight she was brought in by friends because she is "tired of her life" and the way things are and would like to get help. She denies SI/HI. In the ER she is afebrile, mild tachycardia ER Course: Pepcid 20mg IV NSS 1L Folic Acid 1mg IV Thiamine 100mg IV MVI Principal Diagnosis Alcohol Withdrawal Discharge Exam General: patient resting comfortably, NAD, non-toxic in appearance, AA&O x 4. Somewhat anxious, minimal tremors Skin: warm, dry, intact, no rashes or lesions HEENT: NC/AT, PERRL, EOMI, anicteric sclera, conjunctiva without injection, neck supple, trachea midline, no LAD, no thyromegaly, no JVD Heart: +S1/S2, regular, no m/r/g Lungs: equal air entry bilaterally, no rales/rhonchi/wheezes Abd: +BS, soft, NT/ND, no masses/organomegaly/ascites Ext: warm, 2+ pulses in UE/LE bilaterally, no clubbing/cyanosis or edema Neuro: nonfocal, patient AA&O x 4, speech intact, no facial droop, moving all extremities on command with equal strength 5/5 Discharge Data Allergies Allergy/AdvReac Type Severity Reaction Status Date / Time alcohol Allergy Unknown Verified 08/11/24 11:03 Consultations 08/20/24 05:55 ED Decision to Admit Stat 08/20/24 08:46 Consult Behavioral Health Liaison Routine Hospital Course (1) Alcohol withdrawal: Tolerating well. AWSS at highest early this morning was 8 due to anxiety . Most scores are ranging from 2-4. Last dose of Ativan was 08/23 at 0410. Librium is schedule BID. Pt's primary symptoms are anxiety, she is orientated x 4. - Continue Librium 100 mg to BID - Monitor via AWSS and Ativan given PRN for symptoms - Encouraged nutrition and for pt to eat at least small potion of each meal. - Continue Buspar 10 mg for elevated anxiety - Will contact nurse navigator to [facility] to assist with setting up outpatient rehab. Pt was also encouraged to call tmrw morning to begin services. (2) Depression: Anxiety increasing, depressed speech and affect -Continue sertraline (3) Dry eye: L conjunctival injection, manages w/OTC artificial tears at home -Artificial tears prn (4) GERD without esophagitis: Stable, denies nausea/vomiting, abdominal pain. -Continue protonix Total Time Total Time Spent Total Time Spent (In Minutes): As per Attending physician's attestation Discharge Plan Discharge Items Patient Disposition: Home - Self-Care Reason For Visit: ALCOHOL WITHDRAWAL Discharge Diagnosis: alcohol withdrawal Activity: Resume your previous activity Non-emergency contact: Primary Care Provider Call non-emergency contact if: your symptoms worsen Follow-up/Referrals: Danitza Hilario DO [Primary Care Provider] - Diet: Regular Addtl Attending Provider Instructions: You were admitted for medical supervision during alcohol withdrawal. You were given scheduled Librium and as needed Ativan. You do not need these for home. You can resume your previous home medications. To assist with your anxiety symptoms, you can take your home dose of Buspar 10 mg twice daily instead of as needed. We will ask our nurse navigator to contact [facility], but you can call them using the contact information on the pamphlets you were given. Pending Studies at Discharge: No Stand-Alone Forms: My [facility], Smoking Cessation Medications and DC Order Prescriptions: Continued disulfiram 250 mg tablet 250 mg PO DAILY Qty: 30 5RF pantoprazole 40 mg tablet,delayed release (DR/EC) 40 mg PO DAILY Qty: 90 3RF calcium carbonate [Calcium 600] 600 mg calcium (1,500 mg) tablet 600 mg PO DAILY zinc-magnesium aspart-vit B6 [Zinc Magnesium Aspartate] 1 tab PO DAILY buspirone 10 mg tablet 10 mg PO BID PRN (Reason: anxiety) 90 Days Qty: 180 1RF Linzess 72 mcg capsule 72 mcg PO DAILY Qty: 90 3RF citalopram 40 mg tablet 40 mg PO HS Rx Instructions: TAKE 1 TABLET BY MOUTH AT BEDTIME trazodone 150 mg tablet 150 mg PO DAILY Rx Instructions: take 1 tablet by mouth once daily Discharge Orders: Discharge Order (Routine); Ordered 08/23/24 Ordered By: Kellee Burton Admission Data Admit Date/Time: 08/20/24 06:13 Attending Provider: Stiven Washburn Admit Provider: Rhonda Freed Primary Care Provider: Danitza Hilario Other Providers: Rhonda Freed Other Interventions: Discharge Summary Assessment (RN) Last Done: 08/23/24 12:14 Supervising Physician Co-Signing Physician Notes I personally examined the patient and verified all reed points of history and exam, discussed case, and agree with decision making with Dr Burton Initially sleeping whenever I saw her. Later awake. Shaking is improved. Feels up to going home. Would like to do outpatient alcohol rehab, get more involved in congregation, lean on friends, and spend much less time alone. Vitals noted, in general she is awake and alert pleasant but anxious no distress. Not tremulous. Not diaphoretic. Breathing unlabored no accessory muscle use good effort. Skin without rashes pallor or icterus. anxiety/depression/EtOH abuse/withdrawal - Withdrawal appears to be improved. She would like to go homeshe is quite anxious, understandably, but has a fairly comprehensive plan. She would like to do her outpatient therapy at [facility] noted I would ask our nurse navigator to assist with this but also encouraged the patient to call herself. Encouraged her plans to not be alone, her friend had already gone to her house to remove all alcohol. will need ongoing PCP f/u re anxiety/depression as well Resident Activity Tracking Resident Involvement: Resident Care Provided Care Provided: Adult Hospital Medicine
[2024-08-23 12:15] VITALS: PULSE 95
--- NOTE | 2024-08-23 14:58 | Billing Data ---
Date of Service August 23, 2024 Coding Level of Care Code 21123 IN/OBS DISCH 30 MIN/LESS
--- NOTE | 2024-08-23 14:59 | Billing Data ---
Date of Service August 23, 2024 Coding Level of Care Code 52527 IN/OBS DISCH 30 MIN/LESS
== END 2024-08-23 13:25 | disposition home or self-care (01) | DRG 897 ==
LOC: SUATTDRO → ED 03:06 → EDINP 06:13 → 4W 15:46